=== PATIENT | male | born 1965 | race Caucasian/White ===

== ENCOUNTER → 2020-11-14 14:02 | Outpatient (BNVA) | payer OTHER, SELFPAY | PROVIDERS: PCP Nurse Practitioner Family; Visit Provider Physician Assistant | DX: Z13.89 Encounter for screening for other disorder (principal) | CPT/HCPCS: Q3014 ==

== ENCOUNTER 2021-01-24 11:29 | Emergency (ER) | payer OTHER, SELFPAY ==
--- NOTE | ~2021-01-24 | XR_ITS ---
EXAMINATION: XR CHEST CLINICAL INFORMATION: Ascites. COMPARISON: Chest x-ray 07/03/2013 TECHNIQUE: Frontal view of the chest was obtained. FINDINGS: Lungs are hypoexpanded but clear of acute process. The heart size and pulmonary vascularity is normal. No gross bony abnormality seen. XR/XR chest 1V IMPRESSION: Unremarkable chest examination.
--- NOTE | ~2021-01-24 | CT_ITS ---
EXAMINATION: CT BRAIN, CT CHEST, ABDOMEN AND PELVIS WITHOUT CONTRAST. CLINICAL INFORMATION: Elevated ammonia level. COMPARISON: CT brain 03/02/2009 TECHNIQUE: 5 mm thin axial and reformatted 2 mm thin sagittal and coronal images of brain were obtained. Subsequently axial 5 mm thin and reformatted 3 mm thin sagittal and coronal images of chest, abdomen and pelvis were obtained without contrast. DLP [id number] FINDINGS: Brain: There is no acute intra-axial, extra-axial bleed, masses or collection midline shift. There is no acute infarction in evolution. The lateral ventricles are symmetrical in size and configuration without dilation. The kowalski to white matter differences are maintained normal. Bone windows reveal no calvarial abnormality. There is no scalp soft tissue abnormality. Paranasal sinuses and mastoid air cells are well-aerated. There is a small polyp or retention cyst right maxillary sinus. CHEST: The lungs are well-expanded and clear of acute pneumonic process, contusion or groundglass density. There is calcified 3 mm nodule right upper lobe axial image 143/26, forming calcified nodule lingula image 154/26 and 2 punctate calcifications in the right middle lobe left lower lobe, right lower lobe and lingula likely calcified granulomas. Focal atelectatic changes seen in the right lung base There is no pleural effusion or thickening. The central trachea and the bronchi widely patent. The thyroid lobes are symmetrical and normal. No abnormal size mediastinal or hilar lymph nodes seen The chest wall and the axilla appears unremarkable. Abdomen and pelvis: The liver has lobulated contour with diffuse hypoattenuation likely hepatic steatosis. A focal lesion is hard to exclude given the amount of hypoattenuation. There is no intrahepatic ductal dilatation. Visualized spleen, pancreas and bilateral adrenal glands are unremarkable. The gallbladder is nondilated and appears unremarkable. There is small amount of ascites the right perihepatic and perisplenic space. No varicose veins as seen in ruth hepatis. Both kidneys are normal size, shape and position. No radiopaque renal calculi or hydronephrosis seen. The abdominal aorta is normal caliber. Noted lymph nodes or masses seen. There is scattered stool and gas seen throughout the colon without any significant distention. The small bowel loops are normal caliber. The abdominal wall and inguinal canal appears unremarkable. Imaging through the pelvis reveals normal bladder. No pelvic mass or free fluid. Bone windows reveal no lytic or sclerotic process seen. CT/CT abdomen pelvis wo con IMPRESSION: Acute intracranial process seen. Multiple calcified lung nodules likely calcified granulomas. No lung contusion, mass or consolidation. Diffuse hepatic steatosis with mild ascites. No varicose veins or splenomegaly seen. Mild haziness in the peritoneum likely secondary to venous congestion.
--- NOTE | ~2021-01-24 | XR_ITS ---
EXAMINATION: XR CHEST CLINICAL INFORMATION: Central line placement COMPARISON: Chest x-ray 01/24/2021. CT chest 01/24/2021 TECHNIQUE: Frontal portable view of the chest was obtained. 9:05 PM FINDINGS: EKG leads overlie the chest. Right IJ catheter tip at right atrium just distal to the cavoatrial junction. There is no pneumothorax. Lungs are normally aerated. No pulmonary vascular congestion. No pleural effusion. XR/XR chest 1V IMPRESSION: Right IJ catheter tip in right atrium just distal to the cavoatrial junction. There is no pneumothorax.
[2021-01-24 11:40] VITALS: BP 118/55; BP 150/85; PULSE 102; PULSE 110; RESP 18; TEMP 36.6; O2SAT 96; BMI 32.8
--- NOTE | 2021-01-24 12:21 | MHC.RECOVSUP ---
? Reason for consult:Continuity of care o Current location: ED-22 o Identified substance use concern: ETOh - Support ? Intervention: o MAT started or to be started o Community resources provided o ? Plan: o o Patient to follow up with [facility] after discharge ? Additional information:Pt.here for ETOH, PT. had at least three beers, drinks 3 days a week, [facility]. PT. has refused detox. Pt. is on Mat from [facility]. Spoke to patient about [facility].
--- NOTE | 2021-01-24 12:41 | ED.GENADULT ---
HPI - General Adult General Chief complaint: ETOH/Substance Use <HARPAL Stanley - Last Filed: 01/24/21 21:54> Stated complaint: ETOH <HARPAL Stanley - Last Filed: 01/24/21 21:54> Time Seen by Provider: 01/24/21 12:41 <HARPAL Stanley - Last Filed: 01/24/21 21:54> Source: patient, RN notes reviewed and old records reviewed <HARPAL Stanley - Last Filed: 01/24/21 21:54> Mode of arrival: EMS <HARPAL Stanley - Last Filed: 01/24/21 21:54> Limitations: altered mental status <HARPAL Stanley - Last Filed: 01/24/21 21:54> History of Present Illness HPI narrative: 55-year-old male here today with altered mental status. Patient was sent to us by his family members. Patient has been drinking heavy for the past few weeks. Patient drank this morning. Patient with ascites questioning liver failure, jaundice. Patient denies any CP, PND, SOB. Bilateral lower extremity swelling. Patient is confused does not remember his medical history. <HARPAL Stanley - Last Filed: 01/24/21 21:54> Related Data Home medications: Home Medications Medication Instructions Recorded Confirmed buspirone 30 mg tablet 30 mg PO TID 11/14/20 01/24/21 fluoxetine 20 mg capsule 40 mg PO DAILY 11/14/20 01/24/21 mecobalamin (vitamin B12) 1,000 1,000 mcg SUBLINGUAL DAILY 11/14/20 01/24/21 mcg disintegrating tablet,sublingual acamprosate 666 mg PO BID 01/24/21 01/24/21 albuterol sulfate 2 puff PO Q4-6H PRN 01/24/21 01/24/21 cyanocobalamin (vitamin B-12) 1 tab PO DAILY 01/24/21 01/24/21 fluticasone furoate-vilanterol 1 puff PO DAILY 01/24/21 01/24/21 [Breo Ellipta] quetiapine [Seroquel] 1 tab PO BEDTIME 01/24/21 01/24/21 <HARPAL Stanley - Last Filed: 01/24/21 21:54> Allergies/adverse reactions: Allergies Allergy/AdvReac Type Severity Reaction Status Date / Time SEAFOOD Allergy Severe HIVES Uncoded 01/24/21 11:44 <HARPAL Stanley - Last Filed: 01/24/21 21:54> Review of Systems Review of Systems: Constitutional : No Weight loss, No Fever, No Chills, No Night Sweats, No Fatigue, No Malaise ENT/Mouth : No Hearing loss, No Ear Pain, No Nasal Congestion, No Sinus Pain, No Hoarseness, No sore throat, No Rhinorrhea, No Swallowing Difficulty Eyes: No Eye Pain, No Swelling, No Redness, No Foreign Body, No Discharge, No Vision Changes Cardiovascular : No Chest Pain, No SOB, No Dyspnea on Exertion, No Orthopnea, No Edema, No Palpitations Respiratory : No Cough, No Sputum, No Wheezing, No Smoke Exposure, No Dyspnea Gastrointestinal : No Nausea, No Vomiting, No Diarrhea, No Constipation, No abdominal Pain, No Hematochezia, No Melena Genitourinary : no irregular bleeding, No Dysuria, No Urinary Frequency, No Hematuria, No Urinary Incontinence, No Urgency, No Flank Pain, No Urinary Flow Changes, No Hesitancy Musculoskeletal : No joint pain, No Myalgias, No Joint Swelling Skin : No Skin Lesions, rash Neuro : Weakness, No Numbness, No Paresthesias, No Loss of Consciousness, No Dizziness, No Headache Psych : No Anxiety/Panic, No Depression, No SI/HI/AH/VH, No Social Issues, Heme/Lymph: Bruising, No Bleeding,No Lymphadenopathy Endocrine : No Polyuria, No Polydipsia, No Temperature Intolerance <HARPAL Stanley - Last Filed: 01/24/21 21:54> Yes all other systems are reviewed and are negative <HARPAL Stanley - Last Filed: 01/24/21 21:54> [facility] Family History Family History: Family History Brother Diabetes Sister Heart disease Son Asthma Daughter Asthma Mother Heart disease <HECTOR Stanley-BC - Last Filed: 01/24/21 21:54> Social History Social History: Social History (Updated 11/14/20 @ 14:10 by Shauna Ingram CMA) Household Members: Family Alcohol intake: current Alcohol intake frequency: a few times a month Alcohol type: beer and hard liquor Cigarettes Per Day: 7 Smoked in Last 30 Days: Yes Use of substances other than those prescribed or required for medical reasons: No Advance Directives: No Advance Directives Information Provided: No Current occupational status: disabled <HECTOR Stanley-BC - Last Filed: 01/24/21 21:54> Physical Exam Vital Signs: Vital Signs: Last Vital Signs Temp 99.0 F 01/24/21 14:55 Pulse 118 H 01/24/21 19:18 Resp 21 H 01/24/21 19:18 BP 145/81 H 01/24/21 19:18 Pulse Ox 95 01/24/21 19:18 Body Mass Index 32.8 <HECTOR Stanley-BC - Last Filed: 01/24/21 21:54> Vital Signs: Last Vital Signs Temp 99.0 F 01/24/21 14:55 Pulse 118 H 01/24/21 19:18 Resp 21 H 01/24/21 19:18 BP 145/81 H 01/24/21 19:18 Pulse Ox 95 01/24/21 19:18 Body Mass Index 32.8 <Hardeep Grimm MD - Last Filed: 01/24/21 16:25> Const: General: cooperative, comfortable, alert, ill appearing and lethargic <HECTOR Stanley-BC - Last Filed: 01/24/21 21:54> Nutritional Appearance: overweight and Edematous <HECTOR Stanley-EVAN - Last Filed: 01/24/21 21:54> Orientation/consciousness: oriented to person, oriented to place and lethargic <HECTOR Stanley-EVAN - Last Filed: 01/24/21 21:54> Limitations: altered mental status <HECTOR Stanley-EVAN - Last Filed: 01/24/21 21:54> HENMT: Head: Yes normal to inspection <Nisha Leonardo Acostao, DRESSAGE INSTRUCTOR-BC - Last Filed: 01/24/21 21:54> Ears: hearing grossly normal bilaterally <Nisha D Evie, DRESSAGE INSTRUCTOR-BC - Last Filed: 01/24/21 21:54> General nose exam: Normal external nose present <Nisha D Evie, DRESSAGE INSTRUCTOR-BC - Last Filed: 01/24/21 21:54> Face and sinus: Yes normal facial exam <Nisha D Evie, DRESSAGE INSTRUCTOR-BC - Last Filed: 01/24/21 21:54> Mouth: Normal oral and palatal mucosa present <Nisha D Evie, DRESSAGE INSTRUCTOR-BC - Last Filed: 01/24/21 21:54> Throat: Yes posterior oropharynx normal <Nisha D Evie, DRESSAGE INSTRUCTOR-BC - Last Filed: 01/24/21 21:54> Eyes: General: appearance normal, both eyes and all related structures <Nisha Leonardo Case, DRESSAGE INSTRUCTOR-BC - Last Filed: 01/24/21 21:54> Eyelids: Yes eyelids normal <Nisha D Evie, DRESSAGE INSTRUCTOR-BC - Last Filed: 01/24/21 21:54> Conjunctivae: other (Jaundice) <Nisha D Evie, DRESSAGE INSTRUCTOR-BC - Last Filed: 01/24/21 21:54> Sclerae: scleral abnormal (Jaundice) <Nisha D Evie, DRESSAGE INSTRUCTOR-BC - Last Filed: 01/24/21 21:54> Pupils: Equal, round and reactive pupils present <Nisha D Evie, DRESSAGE INSTRUCTOR-BC - Last Filed: 01/24/21 21:54> Neck: Neck: Yes normal visual inspection, Yes full ROM, Yes no lymphadenopathy, Yes trachea midline and Yes supple <Nisha D Evie, DRESSAGE INSTRUCTOR-BC - Last Filed: 01/24/21 21:54> Thyroid: Thyroid normal <Nisha D Evie, DRESSAGE INSTRUCTOR-BC - Last Filed: 01/24/21 21:54> Lymphatic: no lymphadenopathy noted <Nisha D Evie, DRESSAGE INSTRUCTOR-BC - Last Filed: 01/24/21 21:54> Chest: Chest palpation & inspection: normal inspection of the chest <Nisha D Evie, DRESSAGE INSTRUCTOR-BC - Last Filed: 01/24/21 21:54> Resp: Effort & Inspection: normal respiratory effort and able to speak in complete sentences <HECTOR Stanley-BC - Last Filed: 01/24/21 21:54> Auscultation: clear to auscultation bilaterally <HECTOR Stanley-BC - Last Filed: 01/24/21 21:54> Cardio: Jugular venous distension: no JVD <CARMINE StanleyP-BC - Last Filed: 01/24/21 21:54> Rate: regular rate <CARMINE StanleyP-BC - Last Filed: 01/24/21 21:54> Rhythm: regular rhythm <HECTOR Stanley-BC - Last Filed: 01/24/21 21:54> Heart sounds: S1 normal heart sound present, S2 normal heart sound present, no gallops, no murmurs and no rubs <CARMINE StanleyP-BC - Last Filed: 01/24/21 21:54> Peripheral pulses: Peripheral pulses 2+ throughout <CARMINE StanleyP-BC - Last Filed: 01/24/21 21:54> GI: Inspection: Yes normal to inspection, Yes distended and Yes obesity <CARMINE StanleyP-BC - Last Filed: 01/24/21 21:54> Palpation (GI): No hepatosplenomegaly present, Ascites present and No Rebound tenderness present <CARMINE StanleyP-BC - Last Filed: 01/24/21 21:54> Percussion: Yes normal to percussion <CARMINE StanleyP-BC - Last Filed: 01/24/21 21:54> Auscultation: normal bowel sounds <CARMINE StanleyP-BC - Last Filed: 01/24/21 21:54> Back/Spine/Pelvis: Cervical Spine: cervical ROM normal and No cervical muscular tenderness <CARMINE StanleyP-BC - Last Filed: 01/24/21 21:54> Thoracic/Lumbar Spine: thoracic and lumbar spine normal to inspection <Nisha Leonardo AcostaoCARMINEP-BC - Last Filed: 01/24/21 21:54> Skin: General skin exam: no rashes or lesions noted, elasticity normal and turgor normal <HARPAL Stanley - Last Filed: 01/24/21 21:54> Neuro: General: oriented to person and oriented to place <HARPAL Stanley - Last Filed: 01/24/21 21:54> Cranial nerves: Yes Equal, round and reactive pupils present <HARPAL Stanley - Last Filed: 01/24/21 21:54> Extrem: General: Yes normal to inspection, Yes full ROM and Yes capillary refill normal <HARPAL Stanley - Last Filed: 01/24/21 21:54> Psych: Appearance: grossly normal <HARPAL Stanley - Last Filed: 01/24/21 21:54> Mental Status: mental status grossly normal <HARPAL Stanley - Last Filed: 01/24/21 21:54> Speech and movement: Normal speech and movement present <HARPAL Stanley - Last Filed: 01/24/21 21:54> Affect: normal affect <HARPAL Stanley - Last Filed: 01/24/21 21:54> Attitude: cooperative <HARPAL Stanley - Last Filed: 01/24/21 21:54> Course Course Course Narrative: ETOH abuse for the last few months, patient has jaundice, large distended abdomen- ascites, hyponatremic, high ammonia level. Will give him lactulose admit to ICU. Spoke with the garbage truck dispatcher who came to assess patient. <HARPAL Stanley - Last Filed: 01/24/21 21:54> patient with jaundice, chronically ill, ascitic abdomen, slow to respond. 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 Patient is being currently admitted by garbage truck dispatcher, awaiting bed assignment. No change in patient's condition CT scan reviewed by me and by garbage truck dispatcher. Patient out of bed to the bathroom, large bowel movement. <HARPAL Stanley - Last Filed: 01/24/21 21:54> Reevaluation #2: Bethea catheter output 200 mL in 2 hours. Will repeat BMP and CBC. Patient's heart rate increasing to 120. Abdomen now hard and distended. Patient should be transferred to higher level of care facility. Spoke with our garbage truck dispatcher who feels that patient probably should go to [facility] for possible fasciatomy due to possible abdomen compartment syndrome. Will call [facility] and transfer patient. <HARPAL Stanley - Last Filed: 01/24/21 21:54> Reevaluation #3: Call placed to [facility] transfer line, will send patient to surgical ICU under care of . Patient will be transferred to [facility] ER. [employer] Juncture Grinder PA here at patient's bedside to place Central line. Patient tolerated the procedure well. <HARPAL Stanley - Last Filed: 01/24/21 21:54> Medical Decision Making Lab Data Result diagrams: : 01/24/21 20:54 01/24/21 20:54 <HARPAL Stanley - Last Filed: 01/24/21 21:54> Labs: Lab Results 01/24/21 01/24/21 01/24/21 Range/Units 13:26 13:26 13:26 WBC 7.1 (4.8-10.8) X10*3/uL RBC 4.13 L (4.60-5.80) X10*6/uL Hgb 13.5 L (14.0-18.0) g/dl Hct 36.0 L (42-52) % MCV 87.2 (80-98) fL MCH 32.7 (27.0-33.0) pg MCHC 37.5 H (31.0-36.0) g/dl RDW 13.1 (11.0-16.0) % Plt Count 72 L (160-400) X10*3/uL MPV 8.8 L (9.4-12.4) fL Immature Gran % (Auto) 0.4 (0.0-0.4) % Neut % (Auto) 76.6 H (45-73) % Lymph % (Auto) 9.5 L (20-40) % [place] % (Auto) 13.4 H (2-11) % Eos % (Auto) 0.0 (0-4) % Baso % (Auto) 0.1 (0-2) % Lymph # (Auto) 0.7 L (1.2-4.9) X10*3/uL [place] # (Auto) 1.0 (0.1-1.2) X10*3/uL Eos # (Auto) 0.0 (0.0-0.4) X10*3/uL Baso # (Auto) 0.0 (0.0-0.2) X10*3/uL Abs Immat Gran (auto) 0.03 (0.00-0.03) X10*3/uL Absolute Neuts (auto) 5.4 (2.0-8.3) X10*3/uL Absolute Nucleated RBC 0.040 H (0.0-0.012) X10*3/uL Nucleated RBC % (auto) 0.6 H (0.0-0.2) /100WBC Smear Tech's Comments VERIFIED PT (10.8-13.0) SEC INR (0.9-1.1) APTT (24.1-38.0) SEC Sodium 108 L* (135-145) mmol/L Potassium 5.4 H (3.3-5.1) mmol/L Chloride 78 L (96-108) mmol/L Carbon Dioxide 19 L (22-29) mmol/L Anion Gap 16 (12-20) BUN 5 L (9-16) mg/dL Creatinine 0.53 (0.5-1.4) mg/dL Estim Creat Clear Calc 174.4 Estimated GFR > 60 Random Glucose 128 H (60-115) mg/dL Calcium 7.9 L (8.4-10.2) mg/dL Total Bilirubin 16.2 H (0.0-1.0) mg/dL GGT (11-51) U/L AST 233 H (5-37) U/L ALT 81 H (0-40) U/L Alkaline Phosphatase 185 H (39-117) U/L Ammonia 93 H (13-55) umol/L Troponin I High Sens (<3.5-35.0) ng/L B-Natriuretic Peptide (<100) pg/mL Total Protein 6.2 L (6.5-8.0) g/dL Albumin 3.1 L (3.5-5.0) g/dL Lipase (8-78) U/L Urine Color Urine Appearance Urine pH (5.0-8.0) Ur Specific [place] (1.005-1.025) Urine Protein (NEG-TRACE) MG/DL Urine Glucose (UA) (NEG) MG/DL Urine Ketones (NEG) MG/DL Urine Blood (NEG) Urine Nitrite (NEG) Ur Leukocyte Esterase (NEG) Urine RBC (0) /HPF Urine WBC (0-4) /HPF Ur Squamous Epith Cells /LPF Ur Renal Epithelial Cell /LPF Urine Bacteria /LPF Hyaline Casts /LPF Salicylates (15-30) mg/dL Urine Opiates Screen (Not Detect) Acetaminophen (<30) mcg/mL Ur Barbiturates Screen (Not Detect) Ur Phencyclidine Scrn (Not Detect) Ur Amphetamines Screen (Not Detect) U Benzodiazepines Scrn (Not Detect) Urine Cocaine Screen (Not Detect) U Marijuana (THC) Screen (Not Detect) Ethyl Alcohol mg/dL Coronavirus (PCR) (Negative) Influenza Type A (PCR) (Negative) Influenza Type B (PCR) (Negative) RSV RNA Qual (PCR) (Negative) 01/24/21 01/24/21 01/24/21 Range/Units 13:26 13:26 13:26 WBC (4.8-10.8) X10*3/uL RBC (4.60-5.80) X10*6/uL Hgb (14.0-18.0) g/dl Hct (42-52) % MCV (80-98) fL MCH (27.0-33.0) pg MCHC (31.0-36.0) g/dl RDW (11.0-16.0) % Plt Count (160-400) X10*3/uL MPV (9.4-12.4) fL Immature Gran % (Auto) (0.0-0.4) % Neut % (Auto) (45-73) % Lymph % (Auto) (20-40) % [place] % (Auto) (2-11) % Eos % (Auto) (0-4) % Baso % (Auto) (0-2) % Lymph # (Auto) (1.2-4.9) X10*3/uL [place] # (Auto) (0.1-1.2) X10*3/uL Eos # (Auto) (0.0-0.4) X10*3/uL Baso # (Auto) (0.0-0.2) X10*3/uL Abs Immat Gran (auto) (0.00-0.03) X10*3/uL Absolute Neuts (auto) (2.0-8.3) X10*3/uL Absolute Nucleated RBC (0.0-0.012) X10*3/uL Nucleated RBC % (auto) (0.0-0.2) /100WBC Smear Tech's Comments PT (10.8-13.0) SEC INR (0.9-1.1) APTT (24.1-38.0) SEC Sodium (135-145) mmol/L Potassium (3.3-5.1) mmol/L Chloride (96-108) mmol/L Carbon Dioxide (22-29) mmol/L Anion Gap (12-20) BUN (9-16) mg/dL Creatinine (0.5-1.4) mg/dL Estim Creat Clear Calc Estimated GFR Random Glucose (60-115) mg/dL Calcium (8.4-10.2) mg/dL Total Bilirubin (0.0-1.0) mg/dL GGT 687 H (11-51) U/L AST (5-37) U/L ALT (0-40) U/L Alkaline Phosphatase (39-117) U/L Ammonia (13-55) umol/L Troponin I High Sens 12.1 (<3.5-35.0) ng/L B-Natriuretic Peptide 120 H (<100) pg/mL Total Protein (6.5-8.0) g/dL Albumin (3.5-5.0) g/dL Lipase 168 H (8-78) U/L Urine Color Urine Appearance Urine pH (5.0-8.0) Ur Specific [place] (1.005-1.025) Urine Protein (NEG-TRACE) MG/DL Urine Glucose (UA) (NEG) MG/DL Urine Ketones (NEG) MG/DL Urine Blood (NEG) Urine Nitrite (NEG) Ur Leukocyte Esterase (NEG) Urine RBC (0) /HPF Urine WBC (0-4) /HPF Ur Squamous Epith Cells /LPF Ur Renal Epithelial Cell /LPF Urine Bacteria /LPF Hyaline Casts /LPF Salicylates (15-30) mg/dL Urine Opiates Screen (Not Detect) Acetaminophen (<30) mcg/mL Ur Barbiturates Screen (Not Detect) Ur Phencyclidine Scrn (Not Detect) Ur Amphetamines Screen (Not Detect) U Benzodiazepines Scrn (Not Detect) Urine Cocaine Screen (Not Detect) U Marijuana (THC) Screen (Not Detect) Ethyl Alcohol mg/dL Coronavirus (PCR) (Negative) Influenza Type A (PCR) (Negative) Influenza Type B (PCR) (Negative) RSV RNA Qual (PCR) (Negative) 01/24/21 01/24/21 01/24/21 Range/Units 13:26 13:26 13:26 WBC (4.8-10.8) X10*3/uL RBC (4.60-5.80) X10*6/uL Hgb (14.0-18.0) g/dl Hct (42-52) % MCV (80-98) fL MCH (27.0-33.0) pg MCHC (31.0-36.0) g/dl RDW (11.0-16.0) % Plt Count (160-400) X10*3/uL MPV (9.4-12.4) fL Immature Gran % (Auto) (0.0-0.4) % Neut % (Auto) (45-73) % Lymph % (Auto) (20-40) % [place] % (Auto) (2-11) % Eos % (Auto) (0-4) % Baso % (Auto) (0-2) % Lymph # (Auto) (1.2-4.9) X10*3/uL [place] # (Auto) (0.1-1.2) X10*3/uL Eos # (Auto) (0.0-0.4) X10*3/uL Baso # (Auto) (0.0-0.2) X10*3/uL Abs Immat Gran (auto) (0.00-0.03) X10*3/uL Absolute Neuts (auto) (2.0-8.3) X10*3/uL Absolute Nucleated RBC (0.0-0.012) X10*3/uL Nucleated RBC % (auto) (0.0-0.2) /100WBC Smear Tech's Comments PT 20.4 H (10.8-13.0) SEC INR 1.7 H (0.9-1.1) APTT 34.7 (24.1-38.0) SEC Sodium (135-145) mmol/L Potassium (3.3-5.1) mmol/L Chloride (96-108) mmol/L Carbon Dioxide (22-29) mmol/L Anion Gap (12-20) BUN (9-16) mg/dL Creatinine (0.5-1.4) mg/dL Estim Creat Clear Calc Estimated GFR Random Glucose (60-115) mg/dL Calcium (8.4-10.2) mg/dL Total Bilirubin (0.0-1.0) mg/dL GGT (11-51) U/L AST (5-37) U/L ALT (0-40) U/L Alkaline Phosphatase (39-117) U/L Ammonia (13-55) umol/L Troponin I High Sens (<3.5-35.0) ng/L B-Natriuretic Peptide (<100) pg/mL Total Protein (6.5-8.0) g/dL Albumin 3.2 L (3.5-5.0) g/dL Lipase (8-78) U/L Urine Color Urine Appearance Urine pH (5.0-8.0) Ur Specific [place] (1.005-1.025) Urine Protein (NEG-TRACE) MG/DL Urine Glucose (UA) (NEG) MG/DL Urine Ketones (NEG) MG/DL Urine Blood (NEG) Urine Nitrite (NEG) Ur Leukocyte Esterase (NEG) Urine RBC (0) /HPF Urine WBC (0-4) /HPF Ur Squamous Epith Cells /LPF Ur Renal Epithelial Cell /LPF Urine Bacteria /LPF Hyaline Casts /LPF Salicylates < 5.0 L (15-30) mg/dL Urine Opiates Screen (Not Detect) Acetaminophen < 1 (<30) mcg/mL Ur Barbiturates Screen (Not Detect) Ur Phencyclidine Scrn (Not Detect) Ur Amphetamines Screen (Not Detect) U Benzodiazepines Scrn (Not Detect) Urine Cocaine Screen (Not Detect) U Marijuana (THC) Screen (Not Detect) Ethyl Alcohol mg/dL Coronavirus (PCR) (Negative) Influenza Type A (PCR) (Negative) Influenza Type B (PCR) (Negative) RSV RNA Qual (PCR) (Negative) 01/24/21 01/24/21 01/24/21 Range/Units 13:26 18:25 18:25 WBC (4.8-10.8) X10*3/uL RBC (4.60-5.80) X10*6/uL Hgb (14.0-18.0) g/dl Hct (42-52) % MCV (80-98) fL MCH (27.0-33.0) pg MCHC (31.0-36.0) g/dl RDW (11.0-16.0) % Plt Count (160-400) X10*3/uL MPV (9.4-12.4) fL Immature Gran % (Auto) (0.0-0.4) % Neut % (Auto) (45-73) % Lymph % (Auto) (20-40) % [place] % (Auto) (2-11) % Eos % (Auto) (0-4) % Baso % (Auto) (0-2) % Lymph # (Auto) (1.2-4.9) X10*3/uL [place] # (Auto) (0.1-1.2) X10*3/uL Eos # (Auto) (0.0-0.4) X10*3/uL Baso # (Auto) (0.0-0.2) X10*3/uL Abs Immat Gran (auto) (0.00-0.03) X10*3/uL Absolute Neuts (auto) (2.0-8.3) X10*3/uL Absolute Nucleated RBC (0.0-0.012) X10*3/uL Nucleated RBC % (auto) (0.0-0.2) /100WBC Smear Tech's Comments PT (10.8-13.0) SEC INR (0.9-1.1) APTT (24.1-38.0) SEC Sodium 108 L* (135-145) mmol/L Potassium 5.1 (3.3-5.1) mmol/L Chloride 78 L (96-108) mmol/L Carbon Dioxide 16 L (22-29) mmol/L Anion Gap 19 (12-20) BUN 5 L (9-16) mg/dL Creatinine 0.56 (0.5-1.4) mg/dL Estim Creat Clear Calc 165.0 Estimated GFR > 60 Random Glucose 130 H (60-115) mg/dL Calcium 7.9 L (8.4-10.2) mg/dL Total Bilirubin (0.0-1.0) mg/dL GGT (11-51) U/L AST (5-37) U/L ALT (0-40) U/L Alkaline Phosphatase (39-117) U/L Ammonia (13-55) umol/L Troponin I High Sens (<3.5-35.0) ng/L B-Natriuretic Peptide (<100) pg/mL Total Protein (6.5-8.0) g/dL Albumin (3.5-5.0) g/dL Lipase (8-78) U/L Urine Color Urine Appearance Urine pH (5.0-8.0) Ur Specific [place] (1.005-1.025) Urine Protein (NEG-TRACE) MG/DL Urine Glucose (UA) (NEG) MG/DL Urine Ketones (NEG) MG/DL Urine Blood (NEG) Urine Nitrite (NEG) Ur Leukocyte Esterase (NEG) Urine RBC (0) /HPF Urine WBC (0-4) /HPF Ur Squamous Epith Cells /LPF Ur Renal Epithelial Cell /LPF Urine Bacteria /LPF Hyaline Casts /LPF Salicylates (15-30) mg/dL Urine Opiates Screen Not Detected (Not Detect) Acetaminophen (<30) mcg/mL Ur Barbiturates Screen Not Detected (Not Detect) Ur Phencyclidine Scrn Not Detected (Not Detect) Ur Amphetamines Screen Not Detected (Not Detect) U Benzodiazepines Scrn Not Detected (Not Detect) Urine Cocaine Screen Not Detected (Not Detect) U Marijuana (THC) Screen Not Detected (Not Detect) Ethyl Alcohol 229 mg/dL Coronavirus (PCR) (Negative) Influenza Type A (PCR) (Negative) Influenza Type B (PCR) (Negative) RSV RNA Qual (PCR) (Negative) 01/24/21 01/24/21 01/24/21 Range/Units 18:25 19:20 20:54 WBC 8.9 (4.8-10.8) X10*3/uL RBC 4.15 L (4.60-5.80) X10*6/uL Hgb 13.4 L (14.0-18.0) g/dl Hct 36.2 L (42-52) % MCV 87.2 (80-98) fL MCH 32.3 (27.0-33.0) pg MCHC 37.0 H (31.0-36.0) g/dl RDW 13.2 (11.0-16.0) % Plt Count 87 L (160-400) X10*3/uL MPV 8.5 L (9.4-12.4) fL Immature Gran % (Auto) 0.6 H (0.0-0.4) % Neut % (Auto) 74.6 H (45-73) % Lymph % (Auto) 6.9 L (20-40) % [place] % (Auto) 17.7 H (2-11) % Eos % (Auto) 0.1 (0-4) % Baso % (Auto) 0.1 (0-2) % Lymph # (Auto) 0.6 L (1.2-4.9) X10*3/uL [place] # (Auto) 1.6 H (0.1-1.2) X10*3/uL Eos # (Auto) 0.0 (0.0-0.4) X10*3/uL Baso # (Auto) 0.0 (0.0-0.2) X10*3/uL Abs Immat Gran (auto) 0.05 H (0.00-0.03) X10*3/uL Absolute Neuts (auto) 6.6 (2.0-8.3) X10*3/uL Absolute Nucleated RBC 0.040 H (0.0-0.012) X10*3/uL Nucleated RBC % (auto) 0.5 H (0.0-0.2) /100WBC Smear Tech's Comments PT (10.8-13.0) SEC INR (0.9-1.1) APTT (24.1-38.0) SEC Sodium (135-145) mmol/L Potassium (3.3-5.1) mmol/L Chloride (96-108) mmol/L Carbon Dioxide (22-29) mmol/L Anion Gap (12-20) BUN (9-16) mg/dL Creatinine (0.5-1.4) mg/dL Estim Creat Clear Calc Estimated GFR Random Glucose (60-115) mg/dL Calcium (8.4-10.2) mg/dL Total Bilirubin (0.0-1.0) mg/dL GGT (11-51) U/L AST (5-37) U/L ALT (0-40) U/L Alkaline Phosphatase (39-117) U/L Ammonia (13-55) umol/L Troponin I High Sens (<3.5-35.0) ng/L B-Natriuretic Peptide (<100) pg/mL Total Protein (6.5-8.0) g/dL Albumin (3.5-5.0) g/dL Lipase (8-78) U/L Urine Color MELIA Urine Appearance CLEAR Urine pH 6.5 (5.0-8.0) Ur Specific [place] 1.015 (1.005-1.025) Urine Protein TRACE (NEG-TRACE) MG/DL Urine Glucose (UA) NEG (NEG) MG/DL Urine Ketones 5 (NEG) MG/DL Urine Blood 2+ H (NEG) Urine Nitrite NEG (NEG) Ur Leukocyte Esterase NEG (NEG) Urine RBC 5-9 H (0) /HPF Urine WBC 1-4 (0-4) /HPF Ur Squamous Epith Cells TRACE /LPF Ur Renal Epithelial Cell TRACE /LPF Urine Bacteria TRACE /LPF Hyaline Casts 1-4 /LPF Salicylates (15-30) mg/dL Urine Opiates Screen (Not Detect) Acetaminophen (<30) mcg/mL Ur Barbiturates Screen (Not Detect) Ur Phencyclidine Scrn (Not Detect) Ur Amphetamines Screen (Not Detect) U Benzodiazepines Scrn (Not Detect) Urine Cocaine Screen (Not Detect) U Marijuana (THC) Screen (Not Detect) Ethyl Alcohol mg/dL Coronavirus (PCR) NEGATIVE (Negative) Influenza Type A (PCR) NEGATIVE (Negative) Influenza Type B (PCR) NEGATIVE (Negative) RSV RNA Qual (PCR) NEGATIVE (Negative) 01/24/21 Range/Units 20:54 WBC (4.8-10.8) X10*3/uL RBC (4.60-5.80) X10*6/uL Hgb (14.0-18.0) g/dl Hct (42-52) % MCV (80-98) fL MCH (27.0-33.0) pg MCHC (31.0-36.0) g/dl RDW (11.0-16.0) % Plt Count (160-400) X10*3/uL MPV (9.4-12.4) fL Immature Gran % (Auto) (0.0-0.4) % Neut % (Auto) (45-73) % Lymph % (Auto) (20-40) % [place] % (Auto) (2-11) % Eos % (Auto) (0-4) % Baso % (Auto) (0-2) % Lymph # (Auto) (1.2-4.9) X10*3/uL [place] # (Auto) (0.1-1.2) X10*3/uL Eos # (Auto) (0.0-0.4) X10*3/uL Baso # (Auto) (0.0-0.2) X10*3/uL Abs Immat Gran (auto) (0.00-0.03) X10*3/uL Absolute Neuts (auto) (2.0-8.3) X10*3/uL Absolute Nucleated RBC (0.0-0.012) X10*3/uL Nucleated RBC % (auto) (0.0-0.2) /100WBC Smear Tech's Comments PT (10.8-13.0) SEC INR (0.9-1.1) APTT (24.1-38.0) SEC Sodium 109 L* (135-145) mmol/L Potassium 5.3 H (3.3-5.1) mmol/L Chloride 79 L (96-108) mmol/L Carbon Dioxide 14 L (22-29) mmol/L Anion Gap 21 H (12-20) BUN 5 L (9-16) mg/dL Creatinine 0.56 (0.5-1.4) mg/dL Estim Creat Clear Calc 165.0 Estimated GFR > 60 Random Glucose 121 H (60-115) mg/dL Calcium 7.9 L (8.4-10.2) mg/dL Total Bilirubin (0.0-1.0) mg/dL GGT (11-51) U/L AST (5-37) U/L ALT (0-40) U/L Alkaline Phosphatase (39-117) U/L Ammonia (13-55) umol/L Troponin I High Sens (<3.5-35.0) ng/L B-Natriuretic Peptide (<100) pg/mL Total Protein (6.5-8.0) g/dL Albumin (3.5-5.0) g/dL Lipase (8-78) U/L Urine Color Urine Appearance Urine pH (5.0-8.0) Ur Specific [place] (1.005-1.025) Urine Protein (NEG-TRACE) MG/DL Urine Glucose (UA) (NEG) MG/DL Urine Ketones (NEG) MG/DL Urine Blood (NEG) Urine Nitrite (NEG) Ur Leukocyte Esterase (NEG) Urine RBC (0) /HPF Urine WBC (0-4) /HPF Ur Squamous Epith Cells /LPF Ur Renal Epithelial Cell /LPF Urine Bacteria /LPF Hyaline Casts /LPF Salicylates (15-30) mg/dL Urine Opiates Screen (Not Detect) Acetaminophen (<30) mcg/mL Ur Barbiturates Screen (Not Detect) Ur Phencyclidine Scrn (Not Detect) Ur Amphetamines Screen (Not Detect) U Benzodiazepines Scrn (Not Detect) Urine Cocaine Screen (Not Detect) U Marijuana (THC) Screen (Not Detect) Ethyl Alcohol mg/dL Coronavirus (PCR) (Negative) Influenza Type A (PCR) (Negative) Influenza Type B (PCR) (Negative) RSV RNA Qual (PCR) (Negative) <Nsiha Case, DRESSAGE INSTRUCTOR-BC - Last Filed: 01/24/21 21:54> Lab Results 01/24/21 01/24/21 01/24/21 Range/Units 13:26 13:26 13:26 WBC 7.1 (4.8-10.8) X10*3/uL RBC 4.13 L (4.60-5.80) X10*6/uL Hgb 13.5 L (14.0-18.0) g/dl Hct 36.0 L (42-52) % MCV 87.2 (80-98) fL MCH 32.7 (27.0-33.0) pg MCHC 37.5 H (31.0-36.0) g/dl RDW 13.1 (11.0-16.0) % Plt Count 72 L (160-400) X10*3/uL MPV 8.8 L (9.4-12.4) fL Immature Gran % (Auto) 0.4 (0.0-0.4) % Neut % (Auto) 76.6 H (45-73) % Lymph % (Auto) 9.5 L (20-40) % [place] % (Auto) 13.4 H (2-11) % Eos % (Auto) 0.0 (0-4) % Baso % (Auto) 0.1 (0-2) % Lymph # (Auto) 0.7 L (1.2-4.9) X10*3/uL [place] # (Auto) 1.0 (0.1-1.2) X10*3/uL Eos # (Auto) 0.0 (0.0-0.4) X10*3/uL Baso # (Auto) 0.0 (0.0-0.2) X10*3/uL Abs Immat Gran (auto) 0.03 (0.00-0.03) X10*3/uL Absolute Neuts (auto) 5.4 (2.0-8.3) X10*3/uL Absolute Nucleated RBC 0.040 H (0.0-0.012) X10*3/uL Nucleated RBC % (auto) 0.6 H (0.0-0.2) /100WBC Smear Tech's Comments VERIFIED PT (10.8-13.0) SEC INR (0.9-1.1) APTT (24.1-38.0) SEC Sodium 108 L* (135-145) mmol/L Potassium 5.4 H (3.3-5.1) mmol/L Chloride 78 L (96-108) mmol/L Carbon Dioxide 19 L (22-29) mmol/L Anion Gap 16 (12-20) BUN 5 L (9-16) mg/dL Creatinine 0.53 (0.5-1.4) mg/dL Estim Creat Clear Calc 174.4 Estimated GFR > 60 Random Glucose 128 H (60-115) mg/dL Calcium 7.9 L (8.4-10.2) mg/dL Total Bilirubin 16.2 H (0.0-1.0) mg/dL GGT (11-51) U/L AST 233 H (5-37) U/L ALT 81 H (0-40) U/L Alkaline Phosphatase 185 H (39-117) U/L Ammonia 93 H (13-55) umol/L Troponin I High Sens (<3.5-35.0) ng/L B-Natriuretic Peptide (<100) pg/mL Total Protein 6.2 L (6.5-8.0) g/dL Albumin 3.1 L (3.5-5.0) g/dL Lipase (8-78) U/L Urine Color Urine Appearance Urine pH (5.0-8.0) Ur Specific [place] (1.005-1.025) Urine Protein (NEG-TRACE) MG/DL Urine Glucose (UA) (NEG) MG/DL Urine Ketones (NEG) MG/DL Urine Blood (NEG) Urine Nitrite (NEG) Ur Leukocyte Esterase (NEG) Urine RBC (0) /HPF Urine WBC (0-4) /HPF Ur Squamous Epith Cells /LPF Ur Renal Epithelial Cell /LPF Urine Bacteria /LPF Hyaline Casts /LPF Salicylates (15-30) mg/dL Urine Opiates Screen (Not Detect) Acetaminophen (<30) mcg/mL Ur Barbiturates Screen (Not Detect) Ur Phencyclidine Scrn (Not Detect) Ur Amphetamines Screen (Not Detect) U Benzodiazepines Scrn (Not Detect) Urine Cocaine Screen (Not Detect) U Marijuana (THC) Screen (Not Detect) Ethyl Alcohol mg/dL Coronavirus (PCR) (Negative) Influenza Type A (PCR) (Negative) Influenza Type B (PCR) (Negative) RSV RNA Qual (PCR) (Negative) 01/24/21 01/24/21 01/24/21 Range/Units 13:26 13:26 13:26 WBC (4.8-10.8) X10*3/uL RBC (4.60-5.80) X10*6/uL Hgb (14.0-18.0) g/dl Hct (42-52) % MCV (80-98) fL MCH (27.0-33.0) pg MCHC (31.0-36.0) g/dl RDW (11.0-16.0) % Plt Count (160-400) X10*3/uL MPV (9.4-12.4) fL Immature Gran % (Auto) (0.0-0.4) % Neut % (Auto) (45-73) % Lymph % (Auto) (20-40) % [place] % (Auto) (2-11) % Eos % (Auto) (0-4) % Baso % (Auto) (0-2) % Lymph # (Auto) (1.2-4.9) X10*3/uL [place] # (Auto) (0.1-1.2) X10*3/uL Eos # (Auto) (0.0-0.4) X10*3/uL Baso # (Auto) (0.0-0.2) X10*3/uL Abs Immat Gran (auto) (0.00-0.03) X10*3/uL Absolute Neuts (auto) (2.0-8.3) X10*3/uL Absolute Nucleated RBC (0.0-0.012) X10*3/uL Nucleated RBC % (auto) (0.0-0.2) /100WBC Smear Tech's Comments PT (10.8-13.0) SEC INR (0.9-1.1) APTT (24.1-38.0) SEC Sodium (135-145) mmol/L Potassium (3.3-5.1) mmol/L Chloride (96-108) mmol/L Carbon Dioxide (22-29) mmol/L Anion Gap (12-20) BUN (9-16) mg/dL Creatinine (0.5-1.4) mg/dL Estim Creat Clear Calc Estimated GFR Random Glucose (60-115) mg/dL Calcium (8.4-10.2) mg/dL Total Bilirubin (0.0-1.0) mg/dL GGT 687 H (11-51) U/L AST (5-37) U/L ALT (0-40) U/L Alkaline Phosphatase (39-117) U/L Ammonia (13-55) umol/L Troponin I High Sens 12.1 (<3.5-35.0) ng/L B-Natriuretic Peptide 120 H (<100) pg/mL Total Protein (6.5-8.0) g/dL Albumin (3.5-5.0) g/dL Lipase 168 H (8-78) U/L Urine Color Urine Appearance Urine pH (5.0-8.0) Ur Specific [place] (1.005-1.025) Urine Protein (NEG-TRACE) MG/DL Urine Glucose (UA) (NEG) MG/DL Urine Ketones (NEG) MG/DL Urine Blood (NEG) Urine Nitrite (NEG) Ur Leukocyte Esterase (NEG) Urine RBC (0) /HPF Urine WBC (0-4) /HPF Ur Squamous Epith Cells /LPF Ur Renal Epithelial Cell /LPF Urine Bacteria /LPF Hyaline Casts /LPF Salicylates (15-30) mg/dL Urine Opiates Screen (Not Detect) Acetaminophen (<30) mcg/mL Ur Barbiturates Screen (Not Detect) Ur Phencyclidine Scrn (Not Detect) Ur Amphetamines Screen (Not Detect) U Benzodiazepines Scrn (Not Detect) Urine Cocaine Screen (Not Detect) U Marijuana (THC) Screen (Not Detect) Ethyl Alcohol mg/dL Coronavirus (PCR) (Negative) Influenza Type A (PCR) (Negative) Influenza Type B (PCR) (Negative) RSV RNA Qual (PCR) (Negative) 01/24/21 01/24/21 01/24/21 Range/Units 13:26 13:26 13:26 WBC (4.8-10.8) X10*3/uL RBC (4.60-5.80) X10*6/uL Hgb (14.0-18.0) g/dl Hct (42-52) % MCV (80-98) fL MCH (27.0-33.0) pg MCHC (31.0-36.0) g/dl RDW (11.0-16.0) % Plt Count (160-400) X10*3/uL MPV (9.4-12.4) fL Immature Gran % (Auto) (0.0-0.4) % Neut % (Auto) (45-73) % Lymph % (Auto) (20-40) % [place] % (Auto) (2-11) % Eos % (Auto) (0-4) % Baso % (Auto) (0-2) % Lymph # (Auto) (1.2-4.9) X10*3/uL [place] # (Auto) (0.1-1.2) X10*3/uL Eos # (Auto) (0.0-0.4) X10*3/uL Baso # (Auto) (0.0-0.2) X10*3/uL Abs Immat Gran (auto) (0.00-0.03) X10*3/uL Absolute Neuts (auto) (2.0-8.3) X10*3/uL Absolute Nucleated RBC (0.0-0.012) X10*3/uL Nucleated RBC % (auto) (0.0-0.2) /100WBC Smear Tech's Comments PT 20.4 H (10.8-13.0) SEC INR 1.7 H (0.9-1.1) APTT 34.7 (24.1-38.0) SEC Sodium (135-145) mmol/L Potassium (3.3-5.1) mmol/L Chloride (96-108) mmol/L Carbon Dioxide (22-29) mmol/L Anion Gap (12-20) BUN (9-16) mg/dL Creatinine (0.5-1.4) mg/dL Estim Creat Clear Calc Estimated GFR Random Glucose (60-115) mg/dL Calcium (8.4-10.2) mg/dL Total Bilirubin (0.0-1.0) mg/dL GGT (11-51) U/L AST (5-37) U/L ALT (0-40) U/L Alkaline Phosphatase (39-117) U/L Ammonia (13-55) umol/L Troponin I High Sens (<3.5-35.0) ng/L B-Natriuretic Peptide (<100) pg/mL Total Protein (6.5-8.0) g/dL Albumin 3.2 L (3.5-5.0) g/dL Lipase (8-78) U/L Urine Color Urine Appearance Urine pH (5.0-8.0) Ur Specific [place] (1.005-1.025) Urine Protein (NEG-TRACE) MG/DL Urine Glucose (UA) (NEG) MG/DL Urine Ketones (NEG) MG/DL Urine Blood (NEG) Urine Nitrite (NEG) Ur Leukocyte Esterase (NEG) Urine RBC (0) /HPF Urine WBC (0-4) /HPF Ur Squamous Epith Cells /LPF Ur Renal Epithelial Cell /LPF Urine Bacteria /LPF Hyaline Casts /LPF Salicylates < 5.0 L (15-30) mg/dL Urine Opiates Screen (Not Detect) Acetaminophen < 1 (<30) mcg/mL Ur Barbiturates Screen (Not Detect) Ur Phencyclidine Scrn (Not Detect) Ur Amphetamines Screen (Not Detect) U Benzodiazepines Scrn (Not Detect) Urine Cocaine Screen (Not Detect) U Marijuana (THC) Screen (Not Detect) Ethyl Alcohol mg/dL Coronavirus (PCR) (Negative) Influenza Type A (PCR) (Negative) Influenza Type B (PCR) (Negative) RSV RNA Qual (PCR) (Negative) 01/24/21 01/24/21 01/24/21 Range/Units 13:26 18:25 18:25 WBC (4.8-10.8) X10*3/uL RBC (4.60-5.80) X10*6/uL Hgb (14.0-18.0) g/dl Hct (42-52) % MCV (80-98) fL MCH (27.0-33.0) pg MCHC (31.0-36.0) g/dl RDW (11.0-16.0) % Plt Count (160-400) X10*3/uL MPV (9.4-12.4) fL Immature Gran % (Auto) (0.0-0.4) % Neut % (Auto) (45-73) % Lymph % (Auto) (20-40) % [place] % (Auto) (2-11) % Eos % (Auto) (0-4) % Baso % (Auto) (0-2) % Lymph # (Auto) (1.2-4.9) X10*3/uL [place] # (Auto) (0.1-1.2) X10*3/uL Eos # (Auto) (0.0-0.4) X10*3/uL Baso # (Auto) (0.0-0.2) X10*3/uL Abs Immat Gran (auto) (0.00-0.03) X10*3/uL Absolute Neuts (auto) (2.0-8.3) X10*3/uL Absolute Nucleated RBC (0.0-0.012) X10*3/uL Nucleated RBC % (auto) (0.0-0.2) /100WBC Smear Tech's Comments PT (10.8-13.0) SEC INR (0.9-1.1) APTT (24.1-38.0) SEC Sodium 108 L* (135-145) mmol/L Potassium 5.1 (3.3-5.1) mmol/L Chloride 78 L (96-108) mmol/L Carbon Dioxide 16 L (22-29) mmol/L Anion Gap 19 (12-20) BUN 5 L (9-16) mg/dL Creatinine 0.56 (0.5-1.4) mg/dL Estim Creat Clear Calc 165.0 Estimated GFR > 60 Random Glucose 130 H (60-115) mg/dL Calcium 7.9 L (8.4-10.2) mg/dL Total Bilirubin (0.0-1.0) mg/dL GGT (11-51) U/L AST (5-37) U/L ALT (0-40) U/L Alkaline Phosphatase (39-117) U/L Ammonia (13-55) umol/L Troponin I High Sens (<3.5-35.0) ng/L B-Natriuretic Peptide (<100) pg/mL Total Protein (6.5-8.0) g/dL Albumin (3.5-5.0) g/dL Lipase (8-78) U/L Urine Color Urine Appearance Urine pH (5.0-8.0) Ur Specific [place] (1.005-1.025) Urine Protein (NEG-TRACE) MG/DL Urine Glucose (UA) (NEG) MG/DL Urine Ketones (NEG) MG/DL Urine Blood (NEG) Urine Nitrite (NEG) Ur Leukocyte Esterase (NEG) Urine RBC (0) /HPF Urine WBC (0-4) /HPF Ur Squamous Epith Cells /LPF Ur Renal Epithelial Cell /LPF Urine Bacteria /LPF Hyaline Casts /LPF Salicylates (15-30) mg/dL Urine Opiates Screen Not Detected (Not Detect) Acetaminophen (<30) mcg/mL Ur Barbiturates Screen Not Detected (Not Detect) Ur Phencyclidine Scrn Not Detected (Not Detect) Ur Amphetamines Screen Not Detected (Not Detect) U Benzodiazepines Scrn Not Detected (Not Detect) Urine Cocaine Screen Not Detected (Not Detect) U Marijuana (THC) Screen Not Detected (Not Detect) Ethyl Alcohol 229 mg/dL Coronavirus (PCR) (Negative) Influenza Type A (PCR) (Negative) Influenza Type B (PCR) (Negative) RSV RNA Qual (PCR) (Negative) 01/24/21 01/24/21 01/24/21 Range/Units 18:25 19:20 20:54 WBC 8.9 (4.8-10.8) X10*3/uL RBC 4.15 L (4.60-5.80) X10*6/uL Hgb 13.4 L (14.0-18.0) g/dl Hct 36.2 L (42-52) % MCV 87.2 (80-98) fL MCH 32.3 (27.0-33.0) pg MCHC 37.0 H (31.0-36.0) g/dl RDW 13.2 (11.0-16.0) % Plt Count 87 L (160-400) X10*3/uL MPV 8.5 L (9.4-12.4) fL Immature Gran % (Auto) 0.6 H (0.0-0.4) % Neut % (Auto) 74.6 H (45-73) % Lymph % (Auto) 6.9 L (20-40) % [place] % (Auto) 17.7 H (2-11) % Eos % (Auto) 0.1 (0-4) % Baso % (Auto) 0.1 (0-2) % Lymph # (Auto) 0.6 L (1.2-4.9) X10*3/uL [place] # (Auto) 1.6 H (0.1-1.2) X10*3/uL Eos # (Auto) 0.0 (0.0-0.4) X10*3/uL Baso # (Auto) 0.0 (0.0-0.2) X10*3/uL Abs Immat Gran (auto) 0.05 H (0.00-0.03) X10*3/uL Absolute Neuts (auto) 6.6 (2.0-8.3) X10*3/uL Absolute Nucleated RBC 0.040 H (0.0-0.012) X10*3/uL Nucleated RBC % (auto) 0.5 H (0.0-0.2) /100WBC Smear Tech's Comments PT (10.8-13.0) SEC INR (0.9-1.1) APTT (24.1-38.0) SEC Sodium (135-145) mmol/L Potassium (3.3-5.1) mmol/L Chloride (96-108) mmol/L Carbon Dioxide (22-29) mmol/L Anion Gap (12-20) BUN (9-16) mg/dL Creatinine (0.5-1.4) mg/dL Estim Creat Clear Calc Estimated GFR Random Glucose (60-115) mg/dL Calcium (8.4-10.2) mg/dL Total Bilirubin (0.0-1.0) mg/dL GGT (11-51) U/L AST (5-37) U/L ALT (0-40) U/L Alkaline Phosphatase (39-117) U/L Ammonia (13-55) umol/L Troponin I High Sens (<3.5-35.0) ng/L B-Natriuretic Peptide (<100) pg/mL Total Protein (6.5-8.0) g/dL Albumin (3.5-5.0) g/dL Lipase (8-78) U/L Urine Color MELIA Urine Appearance CLEAR Urine pH 6.5 (5.0-8.0) Ur Specific [place] 1.015 (1.005-1.025) Urine Protein TRACE (NEG-TRACE) MG/DL Urine Glucose (UA) NEG (NEG) MG/DL Urine Ketones 5 (NEG) MG/DL Urine Blood 2+ H (NEG) Urine Nitrite NEG (NEG) Ur Leukocyte Esterase NEG (NEG) Urine RBC 5-9 H (0) /HPF Urine WBC 1-4 (0-4) /HPF Ur Squamous Epith Cells TRACE /LPF Ur Renal Epithelial Cell TRACE /LPF Urine Bacteria TRACE /LPF Hyaline Casts 1-4 /LPF Salicylates (15-30) mg/dL Urine Opiates Screen (Not Detect) Acetaminophen (<30) mcg/mL Ur Barbiturates Screen (Not Detect) Ur Phencyclidine Scrn (Not Detect) Ur Amphetamines Screen (Not Detect) U Benzodiazepines Scrn (Not Detect) Urine Cocaine Screen (Not Detect) U Marijuana (THC) Screen (Not Detect) Ethyl Alcohol mg/dL Coronavirus (PCR) NEGATIVE (Negative) Influenza Type A (PCR) NEGATIVE (Negative) Influenza Type B (PCR) NEGATIVE (Negative) RSV RNA Qual (PCR) NEGATIVE (Negative) 01/24/21 Range/Units 20:54 WBC (4.8-10.8) X10*3/uL RBC (4.60-5.80) X10*6/uL Hgb (14.0-18.0) g/dl Hct (42-52) % MCV (80-98) fL MCH (27.0-33.0) pg MCHC (31.0-36.0) g/dl RDW (11.0-16.0) % Plt Count (160-400) X10*3/uL MPV (9.4-12.4) fL Immature Gran % (Auto) (0.0-0.4) % Neut % (Auto) (45-73) % Lymph % (Auto) (20-40) % [place] % (Auto) (2-11) % Eos % (Auto) (0-4) % Baso % (Auto) (0-2) % Lymph # (Auto) (1.2-4.9) X10*3/uL [place] # (Auto) (0.1-1.2) X10*3/uL Eos # (Auto) (0.0-0.4) X10*3/uL Baso # (Auto) (0.0-0.2) X10*3/uL Abs Immat Gran (auto) (0.00-0.03) X10*3/uL Absolute Neuts (auto) (2.0-8.3) X10*3/uL Absolute Nucleated RBC (0.0-0.012) X10*3/uL Nucleated RBC % (auto) (0.0-0.2) /100WBC Smear Tech's Comments PT (10.8-13.0) SEC INR (0.9-1.1) APTT (24.1-38.0) SEC Sodium 109 L* (135-145) mmol/L Potassium 5.3 H (3.3-5.1) mmol/L Chloride 79 L (96-108) mmol/L Carbon Dioxide 14 L (22-29) mmol/L Anion Gap 21 H (12-20) BUN 5 L (9-16) mg/dL Creatinine 0.56 (0.5-1.4) mg/dL Estim Creat Clear Calc 165.0 Estimated GFR > 60 Random Glucose 121 H (60-115) mg/dL Calcium 7.9 L (8.4-10.2) mg/dL Total Bilirubin (0.0-1.0) mg/dL GGT (11-51) U/L AST (5-37) U/L ALT (0-40) U/L Alkaline Phosphatase (39-117) U/L Ammonia (13-55) umol/L Troponin I High Sens (<3.5-35.0) ng/L B-Natriuretic Peptide (<100) pg/mL Total Protein (6.5-8.0) g/dL Albumin (3.5-5.0) g/dL Lipase (8-78) U/L Urine Color Urine Appearance Urine pH (5.0-8.0) Ur Specific [place] (1.005-1.025) Urine Protein (NEG-TRACE) MG/DL Urine Glucose (UA) (NEG) MG/DL Urine Ketones (NEG) MG/DL Urine Blood (NEG) Urine Nitrite (NEG) Ur Leukocyte Esterase (NEG) Urine RBC (0) /HPF Urine WBC (0-4) /HPF Ur Squamous Epith Cells /LPF Ur Renal Epithelial Cell /LPF Urine Bacteria /LPF Hyaline Casts /LPF Salicylates (15-30) mg/dL Urine Opiates Screen (Not Detect) Acetaminophen (<30) mcg/mL Ur Barbiturates Screen (Not Detect) Ur Phencyclidine Scrn (Not Detect) Ur Amphetamines Screen (Not Detect) U Benzodiazepines Scrn (Not Detect) Urine Cocaine Screen (Not Detect) U Marijuana (THC) Screen (Not Detect) Ethyl Alcohol mg/dL Coronavirus (PCR) (Negative) Influenza Type A (PCR) (Negative) Influenza Type B (PCR) (Negative) RSV RNA Qual (PCR) (Negative) <Hardeep Grimm MD - Last Filed: 01/24/21 16:25> Imaging Data Head, chest and abdominal CT: Radiologist's impression: FINDINGS: Brain: There is no acute intra-axial, extra-axial bleed, masses or collection midline shift. There is no acute infarction in evolution. The lateral ventricles are symmetrical in size and configuration without dilation. The kowalski to white matter differences are maintained normal. Bone windows reveal no calvarial abnormality. There is no scalp soft tissue abnormality. Paranasal sinuses and mastoid air cells are well-aerated. There is a small polyp or retention cyst right maxillary sinus. CHEST: The lungs are well-expanded and clear of acute pneumonic process, contusion or groundglass density. There is calcified 3 mm nodule right upper lobe axial image 143/26, forming calcified nodule lingula image 154/26 and 2 punctate calcifications in the right middle lobe left lower lobe, right lower lobe and lingula likely calcified granulomas. Focal atelectatic changes seen in the right lung base There is no pleural effusion or thickening. The central trachea and the bronchi widely patent. The thyroid lobes are symmetrical and normal. No abnormal size mediastinal or hilar lymph nodes seen The chest wall and the axilla appears unremarkable. Abdomen and pelvis: The liver has lobulated contour with diffuse hypoattenuation likely hepatic steatosis. A focal lesion is hard to exclude given the amount of hypoattenuation. There is no intrahepatic ductal dilatation. Visualized spleen, pancreas and bilateral adrenal glands are unremarkable. The gallbladder is nondilated and appears unremarkable. There is small amount of ascites the right perihepatic and perisplenic space. No varicose veins as seen in ruth hepatis. Both kidneys are normal size, shape and position. No radiopaque renal calculi or hydronephrosis seen. The abdominal aorta is normal caliber. Noted lymph nodes or masses seen. There is scattered stool and gas seen throughout the colon without any significant distention. The small bowel loops are normal caliber. The abdominal wall and inguinal canal appears unremarkable. Imaging through the pelvis reveals normal bladder. No pelvic mass or free fluid. Bone windows reveal no lytic or sclerotic process seen. <Nisha HECTOR RodrigeuzPRESLEY - Last Filed: 01/24/21 21:54> Chest x-ray: Radiologist's impression: FINDINGS: Lungs are hypoexpanded but clear of acute process. The heart size and pulmonary vascularity is normal. No gross bony abnormality seen. XR/XR chest 1V IMPRESSION: Unremarkable chest examination. <Nisha HECTOR RodriguezPRESLEY - Last Filed: 01/24/21 21:54> Discharge Plan Discharge Clinical Impression: Increased ammonia level, Acute hyponatremia Acute pancreatitis Qualifiers: Pancreatitis type: alcohol induced Acute pancreatitis complication: unspecified Qualified Code(s): K85.20 - Alcohol induced acute pancreatitis without necrosis or infection Ascites Qualifiers: Ascites type: due to alcoholic hepatitis Qualified Code(s): K70.11 - Alcoholic hepatitis with ascites <DEEPTHI StanleyEVAN - Last Filed: 01/24/21 21:54> Patient Disposition: [facility] <Nisha HECTOR RodriguezPRESLEY - Last Filed: 01/24/21 21:54> Transfer Details: Transfer to [facility] for higher acuity level.? Abdominal compartment syndrome <NishaHECTOR GutiérrezPRESLEY - Last Filed: 01/24/21 21:54> Transfer to [facility] for higher acuity level.? Abdominal compartment syndrome <Hardeep Grimm MD - Last Filed: 01/24/21 16:25> Prescriptions: No Action albuterol sulfate 90 mcg/actuation HFA aerosol inhaler 2 puff PO Q4-6H PRN (Reason: Shortness Of Breath) RF: 0 quetiapine [Seroquel] 400 mg tablet 1 tab PO BEDTIME RF: 0 Breo Ellipta 100-25 mcg/dose blister with device 1 puff PO DAILY RF: 0 cyanocobalamin (vitamin B-12) 1,000 mcg tablet 1 tab PO DAILY RF: 0 acamprosate 333 mg tablet,delayed release (DR/EC) 666 mg PO BID RF: 0 buspirone 30 mg tablet 30 mg PO TID RF: 0 fluoxetine 20 mg capsule 40 mg PO DAILY RF: 0 mecobalamin (vitamin B12) 1,000 mcg tablet,disintegrating 1,000 mcg sublingual DAILY RF: 0 <HECTOR Stanley-BC - Last Filed: 01/24/21 21:54>
--- NOTE | 2021-01-24 12:52 | ECG_ITS ---
Test Reason : TACHYCARDIC Blood Pressure : / mmHG Vent. Rate : 109 BPM Atrial Rate : 109 BPM P-R Int : 170 ms QRS Dur : 098 ms QT Int : 336 ms P-R-T Axes : 020 007 092 degrees QTc Int : 452 ms Sinus tachycardia Nonspecific ST and T wave abnormality Abnormal ECG When compared with ECG of 09-OCT-2010 11:13, Nonspecific T wave abnormality now evident in Anterolateral leads Referred By: Nisha Case Electronically Signed By:BRIGID BAILEY
[2021-01-24 13:33] LABS: Basophils Percent Auto 0.1 % (0-2); MANUAL DIFF FLAG SCAN; Mean Platelet Volume 8.8 fL (9.4-12.4); PLT CLUMP 1; SCAN SMEAR FLAG 1
[2021-01-24 13:35] LABS: Hemoglobin 13.5 g/dl (14.0-18.0); Imm Gran Abs Auto 0.03 X10*3/uL (0.00-0.03); Imm Gran Pct Auto 0.4 % (0.0-0.4); Lymphocytes Absolute Auto 0.7 X10*3/uL (1.2-4.9); Lymphocytes Percent Auto 9.5 % (20-40); Mean Corpuscular HGB Conc 37.5 g/dl (31.0-36.0); Mean Corpuscular Hemoglobin 32.7 pg (27.0-33.0); Mean Corpuscular Volume 87.2 fL (80-98); Monocytes Percent Auto 13.4 % (2-11); NRBC Pct Auto 0.6 /100WBC (0.0-0.2); Neutrophils Absolute Auto 5.4 X10*3/uL (2.0-8.3); Neutrophils Percent Auto 76.6 % (45-73); Platelet Count 72 X10*3/uL (160-400); Red Blood Count 4.13 X10*6/uL (4.60-5.80); Red Cell Distribution Width 13.1 % (11.0-16.0); White Blood Count 7.1 X10*3/uL (4.8-10.8)
[2021-01-24 13:36] VITALS: BP 119/58; PULSE 112; RESP 18; TEMP 36.6; O2SAT 96
[2021-01-24 13:38] LABS: INTERNATIONAL NORM RATIO 1.7 (0.9-1.1); Prothrombin Time 20.4 SEC (10.8-13.0)
[2021-01-24 13:58] LABS: SLIDE REVIEW VERIFIED
[2021-01-24 14:02] LABS: Ammonia 93 umol/L (13-55)
[2021-01-24 14:06] LABS: Albumin Level 3.2 g/dL (3.5-5.0)
[2021-01-24 14:09] LABS: Ethanol 229 mg/dL
[2021-01-24 14:17] LABS: B Type Natriuretic Peptide 120 pg/mL (<100); Troponin-I High Sensitivity 12.1 ng/L (<3.5-35.0)
[2021-01-24 14:24] LABS: Acetaminophen LAB < 1 mcg/mL (<30); Salicylate < 5.0 mg/dL (15-30)
[2021-01-24 14:30] LABS: Lipase 168 U/L (8-78)
[2021-01-24 14:37] LABS: Alanine Aminotransferase 81 U/L (0-40); Albumin Level 3.1 g/dL (3.5-5.0); Alkaline Phosphatase 185 U/L (39-117); Anion Gap 16 (12-20); Aspartate Amino Transferase 233 U/L (5-37); Bilirubin Total 16.2 mg/dL (0.0-1.0); Blood Urea Nitrogen 5 mg/dL (9-16); Calcium 7.9 mg/dL (8.4-10.2); Carbon Dioxide 19 mmol/L (22-29); Chloride 78 mmol/L (96-108); Creatinine Clr Calc Pharmacy 174.4; Estimated Glomerular Filt Rate > 60; Glucose Random 128 mg/dL (60-115); Potassium 5.4 mmol/L (3.3-5.1); Sodium 108 mmol/L (135-145); Total Protein 6.2 g/dL (6.5-8.0)
[2021-01-24 14:55] VITALS: BP 142/79; PULSE 109; RESP 15; TEMP 37.2; O2SAT 96
[2021-01-24 15:00] LABS: Partial Thromboplastin Time 34.7 SEC (24.1-38.0)
[2021-01-24] MEDS: Lactulose 20 GM/30 ML SOLUTION 30 GM PO (15:00)
[2021-01-24 15:36] LABS: Gamma Glutamyl Transpeptidase 687 U/L (11-51)
[2021-01-24 16:00] VITALS: BP 135/75; PULSE 113; RESP 22; O2SAT 94
--- NOTE | 2021-01-24 16:12 | PC.NURSE ---
Pt has large BM prior to this RN taking over. Pt is alert and oriented at this time. He was evaluated by the tool design draftsperson at the bedside. Commode in place if pt should again have BM.
--- NOTE | 2021-01-24 18:11 | P.HPCC_ITS ---
History of Present Illness Date of Service: 01/24/21 Chief Complaint: Altered mental status/SOB I saw him in the emergency room coming out of CT scan reviewed his CT scan 1st . There was no evidence of elevated intracranial pressure with ventricular size being normal no pattern of cerebral edema no acute pathology chest was clear and abdomen did not show significant bowel distention or wall thickening do might have been a little bit of peripancreatic fat stranding she and because he could in a clearly had what appeared to be a cirrhotic liver and a small amount of ascites He was oriented x3 and spoke to me of shortness of breath and that he had asthma but he had an elevated alcohol level of 227 and an elevated ammonia level of 93 so he was given 1 oral dose of lactulose and I wrote for albuterol treatments and did a bedside echo-left ventricle was normal size but it appears he had relatively diffuse mild hypokinesis with a mild increase in and systolic volume estimated ejection fraction 48-50% and no primary valve or pericardial disease but I did note that he had a a tightly distended abdomen which was nontender and as best I could construction rigger inferior vena cava did not appear to be distended but was a limited image and there was no apparent skin wounds or or breakdown EKG without significant QRS or QT prolongation and he was in sinus rhythm and liver was clearly replaced with a cirrhotic pattern but only small volume of ascites so bowel this was was and and ascites were not the causes of this d istended abdomen and with an elevated lipase I was concerned about the potential for an evolving ileus or possible retroperitoneal swelling and development of increased abdominal pressure so II wanted a Bethea placed for urine toxicology and the ability to measure abdominal pressure so we could track the progression of any complication related to his pancreatitis begin lactulose enemas keep him NPO and and then have a central line placed upon arrival in the ICU so that we could gauge fluid replacement and to get him completely cultured and start him on something empiric at the very least without as particular source for possible spontaneous bacterial peritonitis and that was to be the the admission plan In addition as the alcohol level came down we will going to above observe on CIWA scale and potentially introduce either phenobarb or benzodiazepines or a combination there of In retrospect the 1st intra-abdominal pressure that was measured upon her replacement of the Bethea was at 23 already in a in a position to cause splanchnic ischemia and because of fears of renal and other splanchnic perfusion we made phone calls to [facility] ICU to except the patient because he might need consideration for fasciotomy and a central line was placed but there was no facility or time for CVP reading he was transferred after the line was placed Review of Systems Review of Systems: Yes all other systems are reviewed and are negative [facility] Past Medical History Medical History (Updated 01/25/21 @ 08:10 by Cristiana Henao MD) Alcohol intoxication Family History Family History Brother Diabetes Sister Heart disease Son Asthma Daughter Asthma Mother Heart disease Social History Social History (Updated 11/14/20 @ 14:10 by Shauna Ingram CMA) Household Members: Family Alcohol intake: current Alcohol intake frequency: a few times a month Alcohol type: beer and hard liquor Cigarettes Per Day: 7 Smoked in Last 30 Days: Yes Use of substances other than those prescribed or required for medical reasons: No Advance Directives: No Advance Directives Information Provided: No Current occupational status: disabled Meds Allergies Allergy/AdvReac Type Severity Reaction Status Date / Time SEAFOOD Allergy Severe HIVES Uncoded 01/24/21 11:44 Active Medications: Current Medications Generic Name Dose Route Start Last Admin Trade Name Freq PRN Reason Stop Dose Admin Albuterol/Ipratropium 3 ml 01/24/21 21:00 Albuterol/Iprat 2.5/0.5mg 3 Ml Ampul.Neb INHALE 5XD PRAVEENA Sodium Chloride 40 ml/ IV 40 mls @ 20 mls/hr 01/24/21 18:02 Miscellaneous Supplies IV 01/24/21 20:01 ONCE ONE Home Medications Medication Instructions Recorded Confirmed Last Taken Type buspirone 30 mg tablet 30 mg PO TID 11/14/20 01/24/21 01/24/21 History fluoxetine 20 mg capsule 40 mg PO DAILY 11/14/20 01/24/21 01/24/21 History mecobalamin (vitamin B12) 1,000 1,000 mcg SUBLINGUAL DAILY 11/14/20 01/24/21 01/24/21 History mcg disintegrating tablet,sublingual acamprosate 666 mg PO BID 01/24/21 01/24/21 Unknown History albuterol sulfate 2 puff PO Q4-6H PRN 01/24/21 01/24/21 01/23/21 History cyanocobalamin (vitamin B-12) 1 tab PO DAILY 01/24/21 01/24/21 Unknown History fluticasone furoate-vilanterol 1 puff PO DAILY 01/24/21 01/24/21 Unknown History [Breo Ellipta] quetiapine [Seroquel] 1 tab PO BEDTIME 01/24/21 01/24/21 01/23/21 History Physical Exam Vital Signs: Vital Signs: Last Vital Signs Temp 99.0 F 01/24/21 14:55 Pulse 113 H 01/24/21 16:00 Resp 22 H 01/24/21 16:00 BP 135/75 01/24/21 16:00 Pulse Ox 94 01/24/21 16:00 Body Mass Index 32.8 Who is afebrile with sinus tachycardia at 1:13 a.m. oxygen saturation actually on room air was 94% without significant work of breathing No real significant total body fluid overload indication Distended but nontender abdomen with no organomegaly no palpable fluid wave Chest with minimal scattered rales Skin intact no evidence of cellulitis Results Labs CBC and Chem 7: 01/24/21 20:54 01/24/21 20:54 Labs: Laboratory Results - last 24 hr 01/24/21 01/24/21 01/24/21 13:26 13:26 13:26 MCV 87.2 MCH 32.7 MCHC 37.5 H RDW 13.1 Plt Count 72 L MPV 8.8 L Immature Gran % (Auto) 0.4 Neut % (Auto) 76.6 H Lymph % (Auto) 9.5 L [place] % (Auto) 13.4 H Eos % (Auto) 0.0 Baso % (Auto) 0.1 Lymph # (Auto) 0.7 L [place] # (Auto) 1.0 Eos # (Auto) 0.0 Baso # (Auto) 0.0 Abs Immat Gran (auto) 0.03 Absolute Neuts (auto) 5.4 Absolute Nucleated RBC 0.040 H Nucleated RBC % (auto) 0.6 H Smear Tech's Comments VERIFIED PT INR APTT Anion Gap 16 Estim Creat Clear Calc 174.4 Estimated GFR > 60 Random Glucose 128 H Calcium 7.9 L Total Bilirubin 16.2 H GGT AST 233 H ALT 81 H Alkaline Phosphatase 185 H Ammonia 93 H Troponin I High Sens B-Natriuretic Peptide Total Protein 6.2 L Albumin 3.1 L Lipase Salicylates Acetaminophen Ethyl Alcohol 01/24/21 01/24/21 01/24/21 13:26 13:26 13:26 MCV MCH MCHC RDW Plt Count MPV Immature Gran % (Auto) Neut % (Auto) Lymph % (Auto) [place] % (Auto) Eos % (Auto) Baso % (Auto) Lymph # (Auto) [place] # (Auto) Eos # (Auto) Baso # (Auto) Abs Immat Gran (auto) Absolute Neuts (auto) Absolute Nucleated RBC Nucleated RBC % (auto) Smear Tech's Comments PT INR APTT Anion Gap Estim Creat Clear Calc Estimated GFR Random Glucose Calcium Total Bilirubin GGT 687 H AST ALT Alkaline Phosphatase Ammonia Troponin I High Sens 12.1 B-Natriuretic Peptide 120 H Total Protein Albumin Lipase 168 H Salicylates Acetaminophen Ethyl Alcohol 01/24/21 01/24/21 01/24/21 13:26 13:26 13:26 MCV MCH MCHC RDW Plt Count MPV Immature Gran % (Auto) Neut % (Auto) Lymph % (Auto) [place] % (Auto) Eos % (Auto) Baso % (Auto) Lymph # (Auto) [place] # (Auto) Eos # (Auto) Baso # (Auto) Abs Immat Gran (auto) Absolute Neuts (auto) Absolute Nucleated RBC Nucleated RBC % (auto) Smear Tech's Comments PT 20.4 H INR 1.7 H APTT 34.7 Anion Gap Estim Creat Clear Calc Estimated GFR Random Glucose Calcium Total Bilirubin GGT AST ALT Alkaline Phosphatase Ammonia Troponin I High Sens B-Natriuretic Peptide Total Protein Albumin 3.2 L Lipase Salicylates < 5.0 L Acetaminophen < 1 Ethyl Alcohol 01/24/21 13:26 MCV MCH MCHC RDW Plt Count MPV Immature Gran % (Auto) Neut % (Auto) Lymph % (Auto) [place] % (Auto) Eos % (Auto) Baso % (Auto) Lymph # (Auto) [place] # (Auto) Eos # (Auto) Baso # (Auto) Abs Immat Gran (auto) Absolute Neuts (auto) Absolute Nucleated RBC Nucleated RBC % (auto) Smear Tech's Comments PT INR APTT Anion Gap Estim Creat Clear Calc Estimated GFR Random Glucose Calcium Total Bilirubin GGT AST ALT Alkaline Phosphatase Ammonia Troponin I High Sens B-Natriuretic Peptide Total Protein Albumin Lipase Salicylates Acetaminophen Ethyl Alcohol 229 Imaging Radiologist's Impressions: Impressions Chest X-Ray 01/24/21 12:52 IMPRESSION: Unremarkable chest examination. Abdomen/Pelvis CT 01/24/21 14:52 IMPRESSION: Acute intracranial process seen. Multiple calcified lung nodules likely calcified granulomas. No lung contusion, mass or consolidation. Diffuse hepatic steatosis with mild ascites. No varicose veins or splenomegaly seen. Mild haziness in the peritoneum likely secondary to venous congestion. Head CT 01/24/21 14:53 IMPRESSION: Acute intracranial process seen. Multiple calcified lung nodules likely calcified granulomas. No lung contusion, mass or consolidation. Diffuse hepatic steatosis with mild ascites. No varicose veins or splenomegaly seen. Mild haziness in the peritoneum likely secondary to venous congestion. Chest CT 01/24/21 14:54 IMPRESSION: Acute intracranial process seen. Multiple calcified lung nodules likely calcified granulomas. No lung contusion, mass or consolidation. Diffuse hepatic steatosis with mild ascites. No varicose veins or splenomegaly seen. Mild haziness in the peritoneum likely secondary to venous congestion. Assessment and Plan (1) Acute pancreatitis: Qualifiers: Acute pancreatitis complication: unspecified Pancreatitis type: alcohol induced Qualified Code(s): K85.20 - Alcohol induced acute pancreatitis without necrosis or infection Status: Acute (2) Increased ammonia level: Status: Acute (3) Ascites: Qualifiers: Ascites type: due to alcoholic hepatitis Qualified Code(s): K70.11 - Alcoholic hepatitis with ascites Status: Acute (4) Acute hyponatremia: Status: Acute (5) Altered mental status: Status: Acute (6) Alcohol intoxication: Status: Acute (7) Metabolic acidosis with increased anion gap and accumulation of organic acids: Status: Acute So it appears that he has a got alcoholic cirrhosis with hepatic failure with marked hyperbilirubinemia but no CT scan evidence of and an obstructive cholangiopathy with a early metabolic encephalopathy potentially in part alcohol related but with potential for subsequent alcohol withdrawal but clearly had acute pancreatitis with progressive metabolic acidosis and elevated intra- abdominal pressure implying a progressive compartment syndrome possible splanchnic ischemia and with that we petitioned to tertiary care facility for transfer for possible fasciotomy
--- NOTE | 2021-01-24 18:54 | HE.PHANOTE ---
Pharmacy has completed the medication reconciliation, unable to contact pt's pharmacy to verify directions on acampro. Pt states he takes 2 tabs bid
[2021-01-24 18:55] LABS: Amphetamine Screen Urine Not Detected (Not Detect); Barbiturates, Urine Not Detected (Not Detect); Benzodiazepines Screen Urine Not Detected (Not Detect); Cannabinoid Screen Urine Not Detected (Not Detect); Cocaine Screen Urine Not Detected (Not Detect); Opiate Screen Urine Not Detected (Not Detect); Phencyclidine Screen Urine Not Detected (Not Detect)
[2021-01-24 19:02] LABS: Anion Gap 19 (12-20); Blood Urea Nitrogen 5 mg/dL (9-16); Calcium 7.9 mg/dL (8.4-10.2); Carbon Dioxide 16 mmol/L (22-29); Chloride 78 mmol/L (96-108); Estimated Glomerular Filt Rate > 60; Glucose Random 130 mg/dL (60-115); Potassium 5.1 mmol/L (3.3-5.1); Sodium 108 mmol/L (135-145)
[2021-01-24 19:16] LABS: Influenza A PCR NEGATIVE (Negative); Influenza B PCR NEGATIVE (Negative); Resp Syncy Virus RNA Qual PCR NEGATIVE (Negative); SARS COV2 PCR INHOUSE NEGATIVE (Negative)
[2021-01-24 19:18] VITALS: BP 145/81; PULSE 118; RESP 21; O2SAT 95
[2021-01-24 19:31] LABS: Glucose Urine UA NEG (NEG); Leukocyte Esterase Urine NEG (NEG); Nitrite Urine NEG (NEG); PH 6.5 (5.0-8.0); Specific Gravity - Urine 1.015 (1.005-1.025); Urine Blood 2+ (NEG); Urine Ketones 5 MG/DL (NEG); Urine Protein TRACE MG/DL (NEG-TRACE)
[2021-01-24 19:34] LABS: Appearance Urine CLEAR; Color Urine AMBER
[2021-01-24 19:44] LABS: Bacteria Urine TRACE /LPF; Renal Epithelial Cells Urine TRACE /LPF; Squamous Epithelial Cell Urine TRACE /LPF
[2021-01-24 21:03] LABS: Basophils Percent Auto 0.1 % (0-2); Eosinophils Percent Auto 0.1 % (0-4); Imm Gran Abs Auto 0.05 X10*3/uL (0.00-0.03); MANUAL DIFF FLAG SCAN; PLT CLUMP 1; SCAN SMEAR FLAG 1
[2021-01-24 21:05] LABS: Hematocrit 36.2 % (42-52); Hemoglobin 13.4 g/dl (14.0-18.0); Imm Gran Pct Auto 0.6 % (0.0-0.4); Lymphocytes Absolute Auto 0.6 X10*3/uL (1.2-4.9); Lymphocytes Percent Auto 6.9 % (20-40); Mean Corpuscular Hemoglobin 32.3 pg (27.0-33.0); Mean Corpuscular Volume 87.2 fL (80-98); Mean Platelet Volume 8.5 fL (9.4-12.4); Monocytes Absolute Auto 1.6 X10*3/uL (0.1-1.2); Monocytes Percent Auto 17.7 % (2-11); NRBC Pct Auto 0.5 /100WBC (0.0-0.2); Neutrophils Absolute Auto 6.6 X10*3/uL (2.0-8.3); Neutrophils Percent Auto 74.6 % (45-73); Red Blood Count 4.15 X10*6/uL (4.60-5.80); Red Cell Distribution Width 13.2 % (11.0-16.0); White Blood Count 8.9 X10*3/uL (4.8-10.8)
--- NOTE | 2021-01-24 21:14 | P.PNCC_ITS ---
Critical Care Event Note Summary Date of Service: 01/24/21 Code activated: No Narrative: This case had a high probability of a clinically significant, sudden, or life threatening deterioration of this patient's condition which required my full and direct attention, intervention and personal management. Upon my bedside exam, patient's abdomen was very tense, no fluid wave, intra- abdominal pressure was at 23. Patient tachycardic and tachypneic satting at 94% on room air, mentating well. Patient needs to be transferred to [facility] for emergent fasciotomy. Repeat CBC and BMP pending. Pt did receive 3% NS as he was severely hyponatremic at 108, the drip finished immediately prior to labs being drawn. Spoke with Elizabeth, the ELECTRICAL CONTROLS DESIGNER in the ED, she spoke with [facility], they accepted the patient. I placed a triple-lumen catheter and patient is awaiting ambulance to transfer. Commercial Real Estate Sales Manager present for consent for the triple-lumen as well as consent to transfer. Critical Care Time (minutes): 45
[2021-01-24 21:23] LABS: Platelet Count 87 X10*3/uL (160-400)
--- NOTE | 2021-01-24 21:27 | W.PM.CCHP ---
Procedures Date of Service Date of Service: 01/24/21 Central Line Placement Right IJ: Central Line Comments: Interpretor present Consent for Procedure: Elective - informed consent obtained Time out performed: Yes Sterile Technique Used: Yes Patient placed on monitor/pulse ox: Yes MD prep: mask, gown and gloves Central line prep: Chlorhexidine scrub Local anesthesia used: lidocaine 2% Amount of anesthesia used (ml): 3 Ultrasound used for placement: Yes Central line lumen inserted: triple Post procedure: sutured in place, good blood return, all ports aspirated, flushed, capped and sterile dressing applied Post procedure x-ray: tip of catheter in good position and no pneumothorax seen Patient tolerated procedure: well and no complications Complications: none
[2021-01-24 21:29] LABS: Anion Gap 21 (12-20); Blood Urea Nitrogen 5 mg/dL (9-16); Calcium 7.9 mg/dL (8.4-10.2); Carbon Dioxide 14 mmol/L (22-29); Chloride 79 mmol/L (96-108); Estimated Glomerular Filt Rate > 60; Glucose Random 121 mg/dL (60-115); Potassium 5.3 mmol/L (3.3-5.1); Sodium 109 mmol/L (135-145)
[2021-01-24] MEDS: 0.9 % Sodium Chloride 500 ML IV (21:49)
--- NOTE | 2021-01-24 22:00 | PC.NURSE ---
this nurse attempted to call [facility] to give nurse to nurse report. No nurse was available to take report at this time and this nurse was told they would call back for report.
--- NOTE | 2021-01-24 22:26 | PC.NURSE ---
nurse to nurse report given to Marivel ANDERS at [facility] ED
[2021-01-25 08:28] LABS: HBS Num1 0.23 mIU/mL (0-7.99); HBc Num1 0.07 S/CO (0.00-0.79); HIV AB/AG Nonreactive (Nonreactive); HIV Num 1 0.04 S/CO (0.00-0.99); Hepatitis B Core Antibody Nonreactive (Nonreactive); ~HepC Num1 0.13 S/CO (0.00-0.79); ~Hepatitis B Surface Antibody NONREACTIVE (Nonreactive); ~Hepatitis C Antibody Nonreactive (Nonreactive)
[2021-01-25 08:36] LABS: Hepatitis B Surface Antigen Negative (Negative)
[2021-01-26 08:49] LABS: Hepatitis A Antibody IgM 0.19 Index (0-0.79); ~Hepatitis A Antibody IgM Nonreactive (Nonreactive)
== END 2021-01-25 08:03 | disposition short-term general hospital (02) ==
PROVIDERS: Internal Medicine Cardiovascular Disease; Nurse Practitioner Family; Emergency Provider Emergency Medicine
DX: K85.20 Alcohol induced acute pancreatitis without necrosis or infection (principal); E87.2 Acidosis; M54.6 Pain in thoracic spine; R41.82 Altered mental status, unspecified; E87.1 Hypo-osmolality and hyponatremia; K70.11 Alcoholic hepatitis with ascites; R10.9 Unspecified abdominal pain; R79.89 Other specified abnormal findings of blood chemistry; F10.129 Alcohol abuse with intoxication, unspecified; Y90.8 Blood alcohol level of 240 mg/100 ml or more; Z20.822 Contact with and (suspected) exposure to COVID-19; Z79.899 Other long term (current) drug therapy
CPT/HCPCS: 0241U; 36415; 51702; 70450; 71045; 71250; 74176; 80048; 80053; 80143; 80179; 80307; 80320; 81001; 82040; 82140; 82977; 83690; 83880; 84484; 85025; 85610; 85730; 86704; 86706; 86709; 86803; 87340; 87389; 93005; 96360; 96365; 99285; J7131